=== PATIENT | female | born 1985 | race Caucasian/White ===

== ENCOUNTER 2017-03-27 10:19 | Emergency (ER) | payer OTHER ==
[~2017-03-27] VITALS: Ht 167.6 cm; Wt 85.5 kg
[2017-03-27 10:20] VITALS: BP 126/72
[2017-03-27] MEDS ORDERED: CELE20TA PO (10:27)
[2017-03-27] MEDS ORDERED: BUPIVACAINE HCL 0.5% 10 ML VIAL SC ONE (11:15)
[2017-03-27] MEDS ORDERED: CLINDAMYCIN 150 MG CAP PO ONE (11:15)
[2017-03-27] MEDS ORDERED: LIDOCAINE 2% MDV 20 ML VIAL SC ONE (11:15)
[2017-03-27] MEDS ORDERED: NAPR500T3 PO (11:21)
[2017-03-27] MEDS ORDERED: TYLE325T5 PO (11:22)
[2017-03-27] MEDS ORDERED: CLEO300C2 PO (11:28)
== END 2017-03-27 11:43 | disposition home or self-care (01) ==
LOC: M ED 10:19
DX: K04.7 Periapical abscess without sinus (principal)